=== PATIENT | female | born 1980 | race Caucasian/White ===

== ENCOUNTER 2023-09-08 06:10 | Day surgery (SDC) | payer OTHER, SELFPAY ==
[2023-09-03 07:40] VITALS: BMI 24.0
[2023-09-03 09:15] LABS: % Basophils 1.5 % (0-2); % Eosinophils 4.9 % (0-6); % Immature Granulocytes 0.5 % (0-0.5); % Lymphocytes 47.8 % (20.5-51.1); % Monocytes 9.7 % (1.7-9.3); % Neutrophils 35.6 % (42.2-75.2); Absolute Basophils 0.1 10^3/uL (0-0.2); Absolute Eosinophils 0.2 10^3/uL (0-0.7); Absolute Monocytes 0.4 10^3/uL (0.1-0.6); Absolute Neutrophils 1.5 10^3/uL (1.4-6.5); Hematocrit 36.2 % (37.0-47.0); Hemoglobin 12.4 g/dL (12.0-16.0); Mean Corp Hgb Conc. 34.3 g/dL (33.0-37.0); Mean Corpuscular Hgb 31.1 pg (27.0-31.0); Mean Corpuscular Volume 90.7 fL (81.0-99.0); Mean Platelet Volume 10.2 fL (7.4-10.4); Nucleated Red Blood Cells % 0 %; Platelet Count 253 10^3/uL (130-400); Red Blood Cell Count 3.99 10^6/uL (4.20-5.40); Red Cell Dist. Width 12.2 % (11.5-14.5); White Blood Cell Count 4.1 10^3/uL (4.8-10.8)
[2023-09-03 09:22] LABS: Blood Urea Nitrogen 16 mg/dl (7-17); Calcium 9.7 mg/dl (8.4-10.2); Carbon Dioxide 29 mmol/L (22-30); Chloride 104 mmol/L (98-107); Estimated Creatinine Clearance 84 ml/min; Glucose 94 mg/dl (70-99); Potassium 4.5 mmol/L (3.5-5.1); Sodium 139 mmol/L (135-145); eGFR > 60.00
[2023-09-03 11:02] LABS: HCG, Serum Qualitative Screen Negative
[2023-09-08] VITALS (8 sets, daily range): BP systolic 93–106; BP diastolic 48–67; BMI 24.0
[2023-09-08] MEDS: NORMOSOL-R 1000 IV (06:44)
[2023-09-08] MEDS: CELEBREX 200 MG PO (07:11)
[2023-09-08] MEDS: TYLENOL 1000 MG PO (07:11)
--- NOTE | 2023-09-08 08:08 | W.IMMPOSTOP ---
Surgical Immed Post Op Note
-
Primary Surgeon: Eboni Burger DO
Assisting Surgeon: none
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
Post-op Diagnosis: same
Procedure Performed: LEEP and ECC
Anesthesia Type: general LMA Dr. Slaughter
Specimen / Cultures: 1. LEEP 2. ECC
Estimated Blood Loss: 5ml
Complications: none
Operative Findings: Colposcopy findings: Entire SCJ seen. AW uptake 5:00. Stitch at 12:00
Sponge and needle counts correct times 2.
Stable to recovery.
== END 2023-09-08 09:40 | disposition home or self-care (01) ==
LOC: SDS 06:10
PROVIDERS: ATTENDING PHYSICIAN Obstetrics & Gynecology; FAMILY PHYSICIAN Family Medicine
DX: N87.1 Moderate cervical dysplasia (principal)
CPT/HCPCS: 57522; 88305; 88307; 36415; 80048; 84703; 85025; 86850; 86900; 86901; 88341; 88342